=== PATIENT | female | born 1970 | race Caucasian/White ===

== ENCOUNTER → 2021-10-29 | Day surgery (SDC) | payer BC ==
[~2021-10-29] MED LIST: Ketamine 200 MG/20 ML MDV ONE; Lactated Ringers 1,000 ML IV SCH; Propofol 200 MG/20 ML SDV ONE; ePHEDrine 50 MG/ML SDV ONE; fentaNYL 100 MCG/2 ML SDV ONE
== END ==
LOC: CC.SDS 07:52
PROVIDERS: ATTEND Family Medicine
DX: Z12.11 Encounter for screening for malignant neoplasm of colon (principal); D12.5 Benign neoplasm of sigmoid colon; E78.00 Pure hypercholesterolemia, unspecified
CPT/HCPCS: 36415; 84703; J2704; J3010; J7120